=== PATIENT | male | born 1960 | race Caucasian/White ===

== ENCOUNTER 2019-06-19 08:22 | Day surgery (SDC) | payer BC ==
[~2019-06-19] VITALS: Ht 185.4 cm; Wt 120.2 kg
[~2019-06-19 08:22] MED LIST: BENA10TA PO; CENT1TAB PO; EPIP0.3I2 IM; FERR325T3 PO; GABA-845 PO; INVO100T PO; LIDOCAINE 1% MDV 20ML VIAL SQ PRN; LR 1,000 ML IV ONE; METF10004 PO; NEXI40CA PO; PRAV10TA3 PO; TRAV04OPD OP; VICT18IN2 ID; VITA200028 PO; VITA500T40 PO; ceFAZolin SOD 2 GM in IV 1 EA IV ONE
[2019-06-19] MEDS ORDERED: BACITRACIN OINT 30GM As Ordered ONE (10:16)
[2019-06-19] MEDS ORDERED: BUPIVACAINE HCL 0.25% 30 ML VIAL As Ordered ONE (10:17)
[2019-06-19] MEDS ORDERED: PROPOFOL 200 MG/20 ML VIAL As Ordered ONE (11:02)
[2019-06-19] MEDS ORDERED: MIDAZOLAM INJ 2 MG/2 ML VIAL (J2250) As Ordered ONE (11:02)
[2019-06-19] MEDS ORDERED: KETOROLAC 60 MG/2 ML VIAL (J1885) As Ordered ONE (11:02)
[2019-06-19] MEDS ORDERED: dexameTHASONE 4 MG/ML 1ML VIAL (J1100) As Ordered ONE (11:02)
[2019-06-19] MEDS ORDERED: fentaNYL 100 MCG/2 ML INJECTION (J3010) As Ordered ONE ×2 (11:02→11:53)
[2019-06-19] MEDS ORDERED: LIDOCAINE 2% INJ 100 MG/5 ML SDV (FOR ANES.) As Ordered ONE (11:02)
[2019-06-19 11:38] LABS: LDH LACTATE DEHYDROGENASE 164 U/L (87-241)
[2019-06-19] MEDS ORDERED: ACETAMINOPHEN 1000MG 100ML IV BTL (OFIRMEV) (J0131 PER 10MG) As Ordered ONE (12:41)
[2019-06-19] MEDS ORDERED: ONDANSETRON 4MG/2ML VIAL (J2405) IV PRN (13:45)
[2019-06-19] MEDS ORDERED: LR 1,000 ML IV SCH ×2 (13:45→14:46)
[2019-06-19] MEDS ORDERED: fentaNYL 100 MCG/2 ML INJECTION (J3010) IV PRN (13:45)
[2019-06-19] MEDS ORDERED: oxyCODONE 5MG TAB As Ordered ONE (13:52)
[2019-06-19] MEDS ORDERED: oxyCODONE 5MG TAB PO PRN (14:00)
[2019-06-19 14:45] VITALS: BP 150/71
[2019-06-19] MEDS ORDERED: IBUPROFEN 600 MG TAB PO PRN (14:46)
--- NOTE | 2019-06-20 13:50 | RO ---
DATE OF SURGERY: 06/19/2019 PREOPERATIVE DIAGNOSIS: Testicular induration. POSTOPERATIVE DIAGNOSIS: Testicular scarring. PROCEDURE: Inguinal testicular biopsy. SURGEON: Dr. Frank Day [employer] SERVICE TECHNICIAN: ANESTHESIA: General. INDICATION FOR OPERATION: This is a 59-year-old white male who was originally brought in for spermatocelectomy. Since his office visit, the spermatocele has resolved, but now that the testicle could be examined it was quite firm, suspicious for testicular cancer. I therefore explained to the patient the new findings and recommended testicular biopsy, which he agreed to. Blood was drawn for alpha fetoproteins, beta hCG and LDH readings and the patient signed new consents. DESCRIPTION OF OPERATION: The patient was placed on the table in supine position and given general anesthesia. He was then prepped with Betadine paint, draped in a sterile manner. A #15 scalpel was then used to make a right inguinal incision, which was carried down through Savanah's fascia which was opened. The spermatic cord was identified and secured with a Avery drain. The testicle was then brought up through the incision, freed from the gubernaculum and the tunica vaginalis was incised. The tunica however was quite adhered to the testicle and a good plane was not able to be obtained. A biopsy then taken of the very indurated areas of the testicle and sent to pathology. The final pathology showed chronic fibrosis and no evidence of cancer. The tourniquet was then removed from the spermatic cord and the incision were closed with #3-0 chromic sutures. The testicle was then delivered back down into the scrotum and the inguinal incision was closed with #3-0 Vicryl and #4-0 Vicryl for subcuticular stitch. The area was generously anesthetized with 0.25% Marcaine and a DERMABOND dressing was applied with a scrotal support. The patient was then awakened and sent to the recovery room in stable condition having tolerated the procedure well.
== END 2019-06-19 14:45 | disposition home or self-care (01) ==
LOC: M SDC 08:22
PROVIDERS: ATTEND Urology
DX: N50.9 Disorder of male genital organs, unspecified (principal); N50.811 Right testicular pain; I10 Essential (primary) hypertension; K21.9 Gastro-esophageal reflux disease without esophagitis; E11.40 Type 2 diabetes mellitus with diabetic neuropathy, unspecified; Z79.84 Long term (current) use of oral hypoglycemic drugs; Z79.899 Other long term (current) drug therapy; Z98.84 Bariatric surgery status; Z91.013 Allergy to seafood; Z88.0 Allergy status to penicillin
CPT/HCPCS: 54505; 82105; 83615; 84702; 88307; J0131; J0690; J1100; J2250; J3010

== ENCOUNTER → 2019-08-15 | Outpatient (REF) | payer BC ==
[~2019-08-15] MED LIST changes: -LIDOCAINE 1% MDV 20ML VIAL SQ PRN; -LR 1,000 ML IV ONE; -ceFAZolin SOD 2 GM in IV 1 EA IV ONE
[2019-08-15 13:46] LABS: APPEARANCE, URINE CLEAR (CLEAR); BACTERIA, URINE AUTO NEGATIVE (NEGATIVE); BILIRUBIN, URINE AUTO NEGATIVE (NEGATIVE); BLOOD, URINE BLOOD NEGATIVE (NEGATIVE); COLOR, URINE STRAW (YELLOW); GLUCOSE, URINE (UA) AUTO 3+ mg/dL (NEGATIVE); KETONE, URINE AUTO NEGATIVE (NEGATIVE); LEUKOCYTE ESTERASE, URINE AUTO NEGATIVE (NEGATIVE); NITRITE, URINE AUTO NEGATIVE (NEGATIVE); PROTEIN, URINE AUTO NEGATIVE (NEGATIVE); RBC, URINE AUTO 0 /HPF (0-3); SPECIFIC GRAVITY URINE AUTO 1.007 (1.002-1.035); SQUAMOUS EPITHELIAL CELL UR AU 0 /HPF (0-6); UROBILINOGEN, URINE AUTO 0.2 mg/dL (0.0-2.0); WBC, URINE AUTO 0 /HPF (0-3)
== END ==
LOC: M SMT 13:15
PROVIDERS: ATTEND Nurse Practitioner Women's Health
DX: N50.819 Testicular pain, unspecified (principal)

== ENCOUNTER → 2019-08-17 | Outpatient (CLI) | payer BC ==
--- NOTE | 2019-08-17 16:33 | REP ---
Clinical: Right-sided pain and swelling. History of recent scrotal procedure dated 06/2019. Technique: Real time gonzales scale and color Doppler evaluation using high frequency transducer. Findings: There is a large complex multiseptated/multicystic mass like collection in the right melany scrotum which measures greater than 9.2 x 5.8 x 6.9 cm having mixed complex fluid and proteinaceous material. This presumed collection causes mass effect and displaces a relatively normal testicle superiorly in the right melany scrotum. The right testicle itself measures 3.8 x 2.1 x 2.4 cm. Given the history of relatively recent surgery this likely represents a complex seroma, hematoma, post-surgical fluid collection or abscess. The left testicle and epididymis appear relatively normal, and measures 3.9 x 1.7 x 2.4 cm. Left sided varicoceles are appreciated measuring up to 4.5 mm diameter. Impression: 1. Large suspected postsurgical complex collection of mixed material within the right melany scrotum and correlation is required. The right testicle is displaced but otherwise normal in appearance and vascularity. 2. The left testicle is normal, and left-sided varicoceles are identified measuring up to 4.5 mm diameter. Electronically Signed by John Yousif MD 08/17/2019 04:24 P
== END ==
LOC: M RAD 15:16
PROVIDERS: ATTEND Nurse Practitioner Women's Health
DX: N50.819 Testicular pain, unspecified (principal)

== ENCOUNTER → 2019-09-19 | Outpatient (CLI) | payer BC ==
--- NOTE | 2019-09-19 11:27 | REP ---
SCROTAL SONOGRAPHY: HISTORY: Spermatocele. History of spermatocele removal June 2019. History of infection right scrotum. COMPARISON: Scrotal sonography August 17, 2019. FINDINGS: The findings are quite similar to the prior exam August 17, 2019. There is a complex well-encapsulated collection inferior to the right testicle. The right testis is displaced superiorly. The collection measures 3.8 x 3.9 x 3.2 cm. The right testis measures 3.2 x 2.1 x 2.6 cm. Its Doppler flow is present with resistive index 0.65. Left testis measures 4.4 x 1.7 x 2.9 cm. Its Doppler flow is visualized with resistive index 0.68. No intratesticular mass lesion is seen on either side. There is no evidence of simple hydrocele. Epididymides are unremarkable bilaterally. There are dilated veins with very slow flow visible in the left scrotum with slightly increased flow with Valsalva. IMPRESSION: Complex lesion in the right melany-scrotum with no definite internal flow. Cystic and solid components similar to the prior study. The right testis is displaced superiorly by this right scrotal lesion. The lesion measures 3.9 x 3.8 x 3.2 cm. There is slow flow in dilated veins in the left hemiscrotum. No intratesticular mass lesion is seen on either side. Testicular Doppler flow is observed in both testes. Electronically Signed by Geraldo Russell MD 09/19/2019 04:27 P
== END ==
LOC: M RAD 07:55
PROVIDERS: ATTEND Urology
DX: N43.40 Spermatocele of epididymis, unspecified (principal)